=== PATIENT | female | born 1955 | race Caucasian/White ===

== ENCOUNTER 2019-06-22 22:33 | Emergency (ER) | payer BC, OTHER ==
[~2019-06-22] VITALS: Ht 160 cm; Wt 81.8 kg
[2019-06-22] MEDS ORDERED: morphine INJ 10 MG/ML 1ML (SYR OR VIAL) IVP STA (22:56)
[2019-06-22] MEDS ORDERED: NS IV 1000 ML 1,000 ML IV SCH (23:00)
[2019-06-22] MEDS ORDERED: KETOROLAC 30 MG/ML VIAL IVP ONE (23:00)
[2019-06-22 23:05] LABS: BACTERIA,URINE NEGATIVE /HPF; BILIRUBIN,URINE NEGATIVE (NEGATIVE); CLARITY,URINE CLEAR; COLOR,URINE YELLOW; GLUCOSE, URINE (UA) NEGATIVE (NEGATIVE); KETONES,URINE NEGATIVE (NEGATIVE); LEUKOCYTE ESTERASE ,URINE NEGATIVE (NEGATIVE); NITRITE,URINE NEGATIVE (NEGATIVE); PH,URINE 5.5 (5-9); PROTEIN,URINE NEGATIVE (NEGATIVE)
[2019-06-22 23:53] VITALS: BP 124/53
--- NOTE | 2019-06-22 23:54 | ED General ---
General Chief Complaint: Fever-Adult/Adol Stated Complaint: FEVER Nursing Triage Note: PT. STARTED HAVING A FEVER OF 101.2 THIS AFTERNOON AND THIS EVENING. SHE TOOK TYLENOL AROUND 1800. UPON ARRIVAL TO THE ER HER TEMP. WAS 98.6. PT. REPORTED SHE HAS A MANN, SINUS PRESSURE AND ACHES ALL OVER. SHE DID HAVE A FLU SHOT THIS YEAR. Nursing Sepsis Screen: Possible Severe Sepsis Risk Source of Information: Patient Exam Limitations: No Limitations History of Present Illness Date Seen by Provider: Jun 23, 2019 Time Seen by Provider: 06:44 Initial Comments No fever, sore throat, sinus drainage, cough, myalgia for 1 week. Mild MANN, mild neck pain, stiffness, rash or SOA. Severity: Mild Associated Systoms: Denies Symptoms Allergies and Home Medications Allergies Coded Allergies: acetaminophen (Verified Allergy, Unknown, 06/22/19) codeine (Verified Allergy, Unknown, 06/22/19) morphine (Verified Allergy, Unknown, 06/22/19) ondansetron (Verified Allergy, Unknown, 06/22/19) oxycodone (Verified Allergy, Unknown, 06/22/19) prochlorperazine (Verified Allergy, Unknown, 06/22/19) Patient Home Medication List Home Medication List Reviewed: Yes Review of Systems Review of Systems Constitutional: no symptoms reported, fever, malaise EENTM: no symptoms reported, nose congestion, throat pain, throat swelling Respiratory: cough Cardiovascular: no symptoms reported Gastrointestinal: no symptoms reported Genitourinary: no symptoms reported Musculoskeletal: no symptoms reported Skin: see HPI Psychiatric/Neurological: No Symptoms Reported, See HPI Hematologic/Lymphatic: No Symptoms Reported, See HPI Immunological/Allergic: no symptoms reported, see HPI Past Htbwzbo-Wcamum-Hrbrun Hx Past Med/Social Hx: Reviewed Nursing Past Med/Soc Hx Patient Social History Recent Foreign Travel: No Contact w/Someone Who Travel: No Recent Infectious Disease Expo: No Recent Hopitalizations: No Physical Abuse: No Sexual Abuse: No Mistreated: No Fear: No Seasonal Allergies Seasonal Allergies: Yes Past Medical History Surgeries: Yes Hysterectomy, Lumpectomy, Tonsillectomy Respiratory: No Cardiac: Yes Hypertension 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 oz. kg; 31.00 BMI Method: General Appearance: No Apparent Distress, WD/WN Eyes: Bilateral Eye Normal Inspection, Bilateral Eye PERRL, Bilateral Eye EOMI HEENT: PERRL/EOMI, Normal ENT Inspection, Pharynx Normal Neck: Supple, Other Respiratory: Lungs Clear, Normal Breath Sounds, Rhonci Cardiovascular: Regular Rate, Rhythm Gastrointestinal: Non Tender, Soft Back: Normal Inspection, No CVA Tenderness Extremity: Normal Inspection, Normal Range of Motion, Non Tender Neurologic/Psychiatric: Alert, Oriented x3 Focused Exam Sepsis Stage: Ruled Out Progress/Results/Core Measures Suspected Sepsis Recent Fever Within 48 Hours: Yes Infection Criteria Present: Suspected New Infection New/Unexplained Altered Menta: No Sepsis Screen: Possible Severe Sepsis Risk SIRS Temperature: Pulse: 100 Respiratory Rate: 16 Blood Pressure 143 /66 Mean: 91 Results/Orders Lab Results Laboratory Tests Test 06/22/19 22:45 Range/Units Urine Color YELLOW Urine Clarity CLEAR Urine pH 5.5 5-9 Urine Specific [place] <=1.005 1.016-1.022 Urine Protein NEGATIVE NEGATIVE Urine Glucose (UA) NEGATIVE NEGATIVE Urine Ketones NEGATIVE NEGATIVE Urine Nitrite NEGATIVE NEGATIVE Urine Bilirubin NEGATIVE NEGATIVE Urine Urobilinogen 0.2 < = 1.0 MG/DL Urine Leukocyte Esterase NEGATIVE NEGATIVE Urine RBC (Auto) NEGATIVE NEGATIVE Urine RBC NONE /HPF Urine WBC NONE /HPF Urine Crystals NONE /LPF Urine Bacteria NEGATIVE /HPF Urine Casts NONE /LPF Urine Mucus NEGATIVE /LPF Urine Culture Indicated NO Micro Results Microbiology 06/22/19 Influenza Types A,B Antigen ([facility]) - Final, Complete My Orders Orders - ANTONIO GALLARDO DO Urinalysis (06/22/19 22:56) Influenza A And B Antigens (06/22/19 22:56) Chest Pa/Lat (2 View) (06/22/19 22:56) Ketorolac Injection (Toradol Injection) (06/22/19 23:00) Morphine Injection (Morphine Injection (06/22/19 22:56) Ns Iv 1000 Ml (Sodium Chloride 0.9%) (06/22/19 23:00) Ed Iv/Invasive Line Start (06/22/19 23:38) Medications Given in ED Current Medications Medications Dose Ordered Sig/Gerald Route Start Time Stop Time Status Last Admin Dose Admin Ketorolac Tromethamine 30 mg ONCE ONCE IVP 06/22/19 23:00 06/22/19 23:01 DC 06/22/19 23:28 30 MG Vital Signs/I&O 06/22/19 06/22/19 22:45 23:53 Temp 37.0 37.0 Pulse 100 85 Resp 16 12 B/P (MAP) 143/66 (91) 124/53 Pulse Ox 94 98 O2 Delivery Room Air Room Air 06/23/19 00:00 Intake Total 1000 ml Balance 1000 ml Capillary Refill : Less Than 3 Seconds Blood Pressure Mean: 91 POS Departure Communication (Admissions) Symptoms improved with tx. Recommended supportive care. Impression Primary Impression: Influenza-like symptoms Disposition: 01 HOME, SELF-CARE Condition: Improved Departure-Patient Inst. Patient Instructions: Fever, Adult (DC), Cough, Child (DC) Add. Discharge Instructions: Follow up wth your counselor or therparist for further evaluation. All discharge instructions reviewed with patient and/or family. Voiced understanding. ANTONIO GALLARDO DO Jun 22, 2019 23:54 POS
--- NOTE | 2019-06-23 06:29 | Diagnostic Imaging Report ---
INDICATION: Fever COMPARISON: None FINDINGS: Frontal and lateral views of the chest demonstrate clear lungs bilaterally. The heart is normal. There is no pneumothorax. Osseous structures are normal. IMPRESSION: Negative chest Dictated by: Dictated on workstation # [id number]
== END 2019-06-23 | disposition home or self-care (01) ==
LOC: ER FS 22:36
DX: R51 Headache (principal); R05 Cough; M54.2 Cervicalgia; I10 Essential (primary) hypertension; E11.9 Type 2 diabetes mellitus without complications; Z88.5 Allergy status to narcotic agent; Z88.8 Allergy status to other drugs, medicaments and biological substances; Z90.710 Acquired absence of both cervix and uterus; Z90.89 Acquired absence of other organs
CPT/HCPCS: 71046; 81000; 87804; 96374; 96375

== ENCOUNTER → 2019-08-14 | Outpatient (CLI) | payer BC ==
--- NOTE | 2019-08-14 15:42 | Diagnostic Imaging Report ---
INDICATION: Left knee pain. TIME OF EXAM: 1:49 p.m. FINDINGS: Three views of the left knee were obtained. Alignment is normal. There is tricompartmental degenerative change with marginal spurring noted. No fracture or dislocation is seen. Joint spaces are fairly well maintained. Articular surfaces are smooth. There is no joint effusion. IMPRESSION: Degenerative changes. No acute bony abnormality is detected. Dictated by: Dictated on workstation # [id number]
== END ==
LOC: RAD FS 13:28
PROVIDERS: ATTEND Nurse Practitioner
DX: M17.12 Unilateral primary osteoarthritis, left knee (principal)
CPT/HCPCS: 73562

== ENCOUNTER 2020-02-27 10:00 | Outpatient (CLI) | payer BC ==
[~2020-02-27] VITALS: Ht 160 cm; Wt 79.1 kg
[~2020-02-27 10:00] MED LIST: CALC-654 PO; GLIP5TAB13 PO; LEVO175T5 PO; LISI-552 PO; MAGN400T39 PO; MELO7.5T46 PO; MV-M1TAB57 PO; POTA99TA21 PO; SERT100T8 PO
== END 2020-02-27 10:08 | disposition home or self-care (01) ==
LOC: PREOP 10:00
PROVIDERS: ATTEND Surgery
DX: Z01.818 Encounter for other preprocedural examination (principal)

== ENCOUNTER 2020-05-26 21:46 | Emergency (ER) | payer BC ==
[~2020-05-26] VITALS: Ht 160 cm; Wt 79.5 kg
[2020-05-26 21:59] VITALS: BP 182/92
--- NOTE | 2020-05-26 22:08 | ED General ---
General Chief Complaint: Fever-Adult/Adol Stated Complaint: FALL/HEAD INJURY Source of Information: Patient, Old Records, RN/MD, RN Notes Reviewed History of Present Illness Date Seen by Provider: May 26, 2020 Time Seen by Provider: 02:55 Initial Comments This patient is a 65-year-old female presents to the emergency department after tripping and falling striking the back of her head. Patient is a small contusion with a 3 cm laceration. Minimal bleeding. Patient denies taking any blood thinners. Patient denies loss of consciousness. Repair laceration and get a CT scan of the head to evaluate treat further needed. Timing/Duration: 1/2 Hour Allergies and Home Medications Allergies Coded Allergies: acetaminophen (Verified Allergy, Unknown, 06/22/19) codeine (Verified Allergy, Unknown, 06/22/19) morphine (Verified Allergy, Unknown, 06/22/19) ondansetron (Verified Allergy, Unknown, 06/22/19) oxycodone (Verified Allergy, Unknown, 06/22/19) prochlorperazine (Verified Allergy, Unknown, 06/22/19) Home Medications Calcium Carbonate/Vitamin D3 1 Each Tablet, 1 EACH PO DAILY, (Reported) Glipizide 5 Mg Tablet, 5 MG PO DAILY, (Reported) Levothyroxine Sodium 175 Mcg Tablet, 175 MCG PO DAILY, (Reported) Lisinopril 20 Mg Tablet, 20 MG PO DAILY, (Reported) Magnesium Oxide 400 Mg Tablet, 400 MG PO DAILY, (Reported) Meloxicam 7.5 Mg Tablet, 7.5 MG PO DAILY, (Reported) Mv-Mn/Folic Acid/Calcium/Vit K 1 Each Tablet, 1 EACH PO DAILY, (Reported) Potassium Gluconate 99 Mg Tablet, 99 MG PO DAILY, (Reported) Sertraline HCl 100 Mg Tablet, 100 MG PO DAILY, (Reported) Patient Home Medication List Home Medication List Reviewed: Yes Review of Systems Review of Systems Constitutional: No no symptoms reported, No see HPI, No chills, No diaphoresis, No dizziness, No fever, No malaise, No weakness, No weight gain, No weight loss, No other EENTM: No see HPI, No no symptoms reported, No ear discharge, No hearing loss, No ear pain, No blurred vision, No double vision, No eye pain, No tearing, No vision loss, No dental problems, No hoarseness, No mouth pain, No mouth swelling, No epistaxis, No nose congestion, No nose pain, No throat pain, No throat swelling, No other Respiratory: No no symptoms reported, No see HPI, No cough, No dyspnea on exertion, No hemoptysis, No orthopnea, No phlegm, No short of breath, No stridor, No wheezing, No other Cardiovascular: No no symptoms reported, No see HPI, No chest pain, No edema, No Hx of Intervention, No palpitations, No syncope, No vascular heart diseas, No other Gastrointestinal: No RUQ, No LUQ, No RLQ, No LLQ, No no symptoms reported, No see HPI, No abdominal pain, No constipation, No diarrhea, No dysphagia, No hematemesis, No heartburn, No jaundice, No loss of appetite, No melena, No nausea, No vomiting, No other Genitourinary: No no symptoms reported, No see HPI, No decreased output, No discharge, No dysuria, No frequency, No hematuria, No hesitancy, No incontinence, No nocturia, No pain, No other Musculoskeletal: No no symptoms reported, No see HPI, No back pain, No gout, No joint pain, No joint swelling, No muscle pain, No muscle stiffness, No muscle cramps, No muscle twitching, No muscle weakness, No neck pain, No other Skin: see HPI All Other Systems Reviewed Negative Unless Noted: Yes Past Hrjhyeo-Ssbshj-Xonxky Hx Patient Social History Alcohol Use: Denies Use Recreational Drug Use: No Smoking Status: Never a Smoker Recent Foreign Travel: No Contact w/Someone Who Travel: No Recent Hopitalizations: No Physical Abuse: No Sexual Abuse: No Mistreated: No Fear: No Seasonal Allergies Seasonal Allergies: Yes Past Medical History Surgeries: Yes Hysterectomy, Lumpectomy, Tonsillectomy Respiratory: Yes Sleep Apnea Currently Using CPAP: Yes Cardiac: Yes Hypertension 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 oz. kg; 30.89 BMI Method: General Appearance: No Apparent Distress, WD/WN HEENT: PERRL/EOMI, TMs Normal, Normal ENT Inspection, Pharynx Normal Neck: Full Range of Motion, Normal Inspection, Non Tender, Supple, Carotid Bruit Respiratory: Chest Non Tender, Lungs Clear, Normal Breath Sounds, No Accessory Muscle Use, No Respiratory Distress Cardiovascular: Regular Rate, Rhythm, No Edema, No Gallop, No JVD, No Murmur, Normal Peripheral Pulses Gastrointestinal: Normal Bowel Sounds, No Organomegaly, No Pulsatile Mass, Non Tender, Soft Neurologic/Psychiatric: Alert, Oriented x3, No Motor/Sensory Deficits, Normal Mood/Affect Skin: Normal Color, Warm/Dry, Other (3 similar laceration to the occipital portion of the scalp. Minimal bleeding.) Procedures/Interventions Wound Location: Scalp Other Wound Location Posterior scalp Wound's Depth, Shape: superficial Wound Explored: clean Irrigated w/ Saline (ccs): 150 Staple Repair: Stapler 35W Number of Sutures: 3 Progress 3 cammy applied with resolution of the bleeding. We will apply pressure dressing with comanage 4 x 4's. Progress/Results/Core Measures Suspected Sepsis SIRS Temperature: Pulse: Respiratory Rate: Blood Pressure / Mean: Results/Orders My Orders Orders - MARIELY FERNANDEZ MD Ct Head Wo (05/26/20 22:05) Vital Signs/I&O 05/26/20 21:59 Temp 35.9 Pulse 80 Resp 18 B/P (MAP) 182/92 (122) Pulse Ox 98 O2 Delivery Room Air Capillary Refill : Progress Note : Time: 22:[address] of the head. Take Tylenol Motrin as needed for headache. Ice packs as needed for swelling. Return to the emergency department in 5 days for staple removal. Departure Impression Primary Impression: Fall Additional Impression: Scalp laceration Disposition: 01 HOME, SELF-CARE Condition: Stable Departure-Patient Inst. Decision time for Depature: 22:36 Referrals: [facility] (PCP) Primary Care Physician BRIANNE SMITH APRN (Family) Primary Care Physician Patient Instructions: Laceration Repair With [place] (DC) Add. Discharge Instructions: Take Tylenol Motrin as needed for headache. Ice packs as needed for swelling. Return to the emergency department in 5 days for staple removal. All discharge instructions reviewed with patient and/or family. Voiced understanding. MARIELY FERNANDEZ MD May 26, 2020 22:08
--- NOTE | 2020-05-27 06:18 | Diagnostic Imaging Report ---
PROCEDURE: CT head without contrast. TECHNIQUE: Multiple contiguous axial images were obtained through the brain without the use of intravenous contrast. Auto Exposure Controls were utilized during the CT exam to meet ALARA standards for radiation dose reduction. INDICATION: Fall, head injury COMPARISON: None FINDINGS: Ventricles are normal in size, shape and position. There is no midline shift or mass effect. There is no hemorrhage or evidence of acute ischemia. No extra-axial fluid collection or mass is seen. There is no skull fracture. Mastoids and paranasal sinuses are unremarkable. IMPRESSION: No acute intracranial abnormalities. Agree with the preliminary report. Dictated by: Dictated on workstation # [id number]
== END 2020-05-26 22:38 | disposition home or self-care (01) ==
LOC: EDUNIT# 21:46 → ER FS 21:50
DX: S01.01XA Laceration without foreign body of scalp, initial encounter (principal); I10 Essential (primary) hypertension; E03.9 Hypothyroidism, unspecified; E11.9 Type 2 diabetes mellitus without complications; Z88.5 Allergy status to narcotic agent; Z88.6 Allergy status to analgesic agent; Z88.8 Allergy status to other drugs, medicaments and biological substances; Z79.890 Hormone replacement therapy; W01.10XA Fall on same level from slipping, tripping and stumbling with subsequent striking against unspecified object, initial encounter
CPT/HCPCS: 70450

== ENCOUNTER → 2021-02-06 | Outpatient (CLI) | payer MEDICARE ==
[~2021-02-06] MED LIST changes: -LISI-552 PO; +LISI20TA26 PO; +SERT-414 PO; -SERT100T8 PO
--- NOTE | 2021-02-06 10:57 | Diagnostic Imaging Report ---
INDICATION: Pain to right 2nd toe. 3 views. No fractures are demonstrated. No periosteal reactive changes. The MP joints are well-maintained with smooth surfaces. Metatarsal tarsal joints appear normal. Interphalangeal joints show mild arthritic change. Calcaneus is normal without evidence of plantar bone spur. No radiopaque densities in the soft tissues. IMPRESSION: Mild arthritic changes, otherwise normal right foot. Dictated by: Dictated on workstation # [id number]
--- NOTE | 2021-02-06 11:02 | Diagnostic Imaging Report ---
INDICATION: Pain to left third digit. FINDINGS: 3 views. There is a moderate arthritic change along the interphalangeal joint. The MP joint is well preserved. There are no fractures. There are lucencies noted the along the marrow space throughout the hand likely secondary to osteoporotic change. No cortical fractures or bony destruction. There is considerable arthritic disease noted of the first CMC joint as well. IMPRESSION: 1. Arthritic changes noted as described. 2. Lucencies along the marrow space throughout the hand. This could be secondary to process such as a multiple myeloma though this may also simply be diffuse osteoporotic change. Dictated by: Dictated on workstation # [id number]
== END ==
LOC: RAD FS 10:12
PROVIDERS: ATTEND Nurse Practitioner
DX: M19.071 Primary osteoarthritis, right ankle and foot (principal); M19.042 Primary osteoarthritis, left hand
CPT/HCPCS: 73140; 73630

== ENCOUNTER → 2022-07-23 | Outpatient (CLI) | payer MEDICARE ==
[~2022-07-23] MED LIST changes: -POTA99TA21 PO; +POTA99TA26 PO
--- NOTE | 2022-07-23 18:15 | Diagnostic Imaging Report ---
EXAMINATION: Right foot radiographs, 3 views. COMPARISON: Right foot radiographs February 06, 2021. HISTORY: 67-year-old female, right foot pain. FINDINGS: There is a small calcaneal heel spur. There is no identified acute fracture. There is no subluxation or dislocation. There is a chronic appearing deformity of the fifth proximal phalanx which is unchanged. Joint spaces are well preserved. IMPRESSION: 1. No acute bony abnormality of the right foot. 2. Small calcaneal heel spur. Dictated by: Dictated on workstation # [id number]
== END ==
LOC: RAD FS 16:32
PROVIDERS: ATTEND Nurse Practitioner Family
DX: M77.31 Calcaneal spur, right foot (principal); S90.424A Blister (nonthermal), right lesser toe(s), initial encounter; X58.XXXA Exposure to other specified factors, initial encounter
CPT/HCPCS: 73630